=== PATIENT | female | born 1995 | race Caucasian/White ===

== ENCOUNTER 2019-07-13 12:26 | Emergency (ER) | payer BC, SELFPAY ==
[2019-07-13 12:37] VITALS: BP 139/88; PULSE 91; RESP 20; TEMP 36.7; O2SAT 100
--- NOTE | 2019-07-13 13:04 | ED.SKABFB ---
HPI - Skin/Abscess/Foreign Bdy General Chief complaint: Skin/Abscess/Foreign Body Stated complaint: boil on rear end Time Seen by Provider: 07/13/19 13:04 Source: patient and RN notes reviewed History of Present Illness HPI narrative: Patient is a 24-year-old female presents the urgent care with complaints of an abscess to the buttocks. Patient states that it started 3 days ago and she has been soaking in baths and using ibuprofen. Patient is unaware if it has been draining. Denies of any other acute complaints. No acute distress noted. Patient had a plan of care. Related Data Allergies Allergy/AdvReac Type Severity Reaction Status Date / Time Cephalosporins Allergy Unknown Rash Verified 07/13/19 12:57 sulfamethoxazole Allergy Unknown Rash Verified 07/13/19 12:57 trimethoprim Allergy Unknown Rash Verified 07/13/19 12:57 Review of Systems Review of Systems: Narrative: CONSTITUTIONAL: Denies fever, chills, or sweats. EYES: Denies visual changes, redness, or discharge. ENT: Denies rhinorrhea, congestion, sore throat, or otalgia. CARDIOVASCULAR: Denies chest pain, palpitations, or edema. RESPIRATORY: Denies cough or dyspnea. GASTROINTESTINAL: Denies abdominal pain, nausea, vomiting, or diarrhea. GENITOURINARY: Denies dysuria or hematuria. SKIN: Reports of abscess to the buttocks MUSCULOSKELETAL: Denies back pain, joint pain, or myalgia. NEUROLOGIC: Denies headache, numbness, or weakness. All other systems reviewed are negative, except as documented in HPI. PMFSH Comments At the time of my signature, I reviewed and agree with the nursing past medical, surgical, social, and family history. There is no relevant family history pertinent to the patient complaint. Exam Narrative: Exam Narrative: GENERAL: This is a well-nourished, well-developed patient, in no apparent distress. HEAD: normocephalic, atraumatic. EYES: PERRL. Sclera clear/white. Vision is grossly intact. EARS: External ears normal NOSE: External nose normal with no obvious nasal discharge THROAT: Mucous membranes moist NECK: Neck supple CARDIOVASCULAR: Regular rate and rhythm without murmurs, gallops, or rubs. RESPIRATORY: Clear to auscultation. Breath sounds equal bilaterally. No wheezes, rales, or rhonchi. SKIN: 2 cm nonfluctuant draining abscess with moderate tenderness to the left gluteal fold. Warm, intact with no suspicious lesions or rash, good texture and turgor. NEURO: awake, alert, and oriented to person, place and time. There were no obvious focal neurologic abnormalities. EXTREMITIES: No clubbing, cyanosis, or edema. Course Vital Signs Vital signs: Vital Signs Temperature 98.1 F 07/13/19 12:37 Pulse Rate 91 07/13/19 12:37 Respiratory Rate 07/13/19 12:37 Blood Pressure 139/88 07/13/19 12:37 Pulse Oximetry 100 07/13/19 12:37 Temperature 98.1 F 07/13/19 12:37 Pulse Rate 91 07/13/19 12:37 Respiratory Rate 07/13/19 12:37 Blood Pressure 139/88 07/13/19 12:37 Pulse Oximetry 100 07/13/19 12:37 Reviewed MDM - Skin/Abscess/Foreign Bdy MDM Narrative Medical decision making narrative: Advised patient to continue to use warm compress, Epson salt baths, Tylenol/ibuprofen as needed. Complete oral antibiotic regimen as prescribed. Make sure to eat and drink with the medication. Follow-up with PCP within 2 to 5 days or for worsening symptoms or failure to improve. Differential Diagnosis Differential diagnosis: Likely abscess of skin or subcutaneous tissue, cellulitis, impetigo and contact dermatitis Critical Care Time Critical Care Time Critical Care Time: No Discharge Plan Discharge Clinical Impression: Abscess of skin or subcutaneous tissue Qualifiers: Site of cutaneous abscess: buttock Qualified Code(s): L02.31 - Cutaneous abscess of buttock Patient Disposition: Home, Self-Care Condition: Stable Instructions: Antibiotic Form, Abscess (ED) Additional Instructions: Advised patient to continue to use
== END 2019-07-13 13:22 | disposition home or self-care (01) ==
PROVIDERS: Emergency Provider Nurse Practitioner Family
DX: L02.31 Cutaneous abscess of buttock (principal)
CPT/HCPCS: 99213; G0463